=== PATIENT | male | born 1965 | race Caucasian/White ===

== ENCOUNTER 2021-10-23 23:18 | Emergency (ER) | payer OTHER ==
[~2021-10-23] VITALS: Ht 188 cm; Wt 88.5 kg
--- NOTE | 2021-10-24 00:11 | NUR ---
TO ER BED 9. BIBS C/O RIGHT LEG PAIN, WARM TO TOUCH, REDNESS NOTED. PT ADMITS TO "BUMPING LEG INTO SOMETHING" A FEW DAYS AGO. PT TOOK TYLENOL AND ADVIL WITHOUT RELIEF. AWAITING MD BYRD
--- NOTE | 2021-10-24 00:40 | NUR ---
ULTRASOUND AT BEDSIDE
[2021-10-24] MEDS ORDERED: SULF1TAB48 PO (01:09)
[2021-10-24] MEDS ORDERED: CEPH500T PO (01:09)
--- NOTE | 2021-10-24 01:12 | NUR ---
Patient discharged to home in stable condition. Written and verbal after care instructions given. Patient verbalizes understanding of instruction.
[2021-10-24] MEDS ORDERED: SULFAMETH/TRIMETH 800/160 MG 1 UDTAB TABLET ONE (01:14)
[2021-10-24] MEDS ORDERED: CEPHALEXIN MONOHYDRATE 500 MG CAPSULE PO ONE ×2 (01:14→01:30)
[2021-10-24] MEDS ORDERED: SULFAMETH/TRIMETH 800/160 MG 1 UDTAB TABLET PO ONE (01:30)
[2021-10-24 01:31] VITALS: BP 129/74
== END 2021-10-24 | disposition home or self-care (01) ==
LOC: ER 10-24 00:09
DX: L03.115 Cellulitis of right lower limb (principal); I10 Essential (primary) hypertension; Z60.2 Problems related to living alone
CPT/HCPCS: 93971-TC